=== PATIENT | male | born 1975 | race Caucasian/White ===

== ENCOUNTER 2021-03-25 09:04 | Outpatient (CLI) | payer BC, SELFPAY ==
[2021-03-25 10:02] LABS: SARS-CoV-2 Ag Negative (Negative)
== END 2021-03-25 09:05 | disposition home or self-care (01) ==
LOC: CHSLAB 09:13
PROVIDERS: PCP Physician Assistant; Visit Provider Physician Assistant
DX: Z20.822 Contact with and (suspected) exposure to COVID-19 (principal)
CPT/HCPCS: 87426; C9803